=== PATIENT | female | born 1965 | race Two or more races ===

== ENCOUNTER 2016-03-09 08:44 | Emergency (ER) | payer MEDICAID ==
[~2016-03-09] VITALS: Ht 157.5 cm; Wt 89.4 kg
[2016-03-09 08:54] VITALS: BP 164/91
== END 2016-03-09 09:38 | disposition home or self-care (01) ==
LOC: ER 08:45
DX: J01.90 Acute sinusitis, unspecified (principal); H66.92 Otitis media, unspecified, left ear; E11.9 Type 2 diabetes mellitus without complications; I10 Essential (primary) hypertension

== ENCOUNTER 2016-03-13 13:29 | Emergency (ER) | payer MEDICAID ==
[~2016-03-13] VITALS: Ht 157.5 cm; Wt 81.6 kg
[2016-03-13 14:39] LABS: Basophils # (auto) 0 uL; Basophils % (auto) 0.5 % (0.0-2.0); Eosinophils # (auto) 0.3 uL; Eosinophils % (auto) 2.4 % (0.0-7.0); Hematocrit 42.1 % (36.0-46.0); Hemoglobin 13.9 g/dL (12.2-16.2); Lymphocytes # (auto) 3.8 uL; Lymphocytes % (auto) 34.6 % (10.0-50.0); Mean Corpuscular Hgb Conc. 33.1 g/dL (32.0-36.0); Mean Corpuscular Volume 84.7 fL (80.0-100.0); Mean Platelet Volume 9.4 fL (7.4-10.4); Monocytes # (auto) 0.6 uL; Monocytes % (auto) 5.8 % (0.0-12.0); Neutrophils # (auto) 6.2 uL; Neutrophils % (auto) 56.7 % (37.0-80.0); Platelet Count (auto) 305 10^3/uL (140-450); Red Cell Distribution Width 13.2 % (11.6-16.0)
[2016-03-13 14:46] VITALS: BP 166/76
[2016-03-13 14:48] LABS: BUN/Creatinine Ratio 17.1; Calcium 8.3 mg/dL (8.5-10.1); Magnesium 1.8 mg/dL (1.6-2.6); Potassium 3.9 mmol/L (3.5-5.1)
[2016-03-13 14:50] LABS: Bilirubin, Total 0.3 mg/dL (0.2-1.0); Total Protein 7.6 g/dL (6.4-8.2)
== END 2016-03-13 16:25 | disposition home or self-care (01) ==
LOC: ER 13:35
DX: G44.209 Tension-type headache, unspecified, not intractable (principal); E11.9 Type 2 diabetes mellitus without complications; I10 Essential (primary) hypertension
CPT/HCPCS: 36415; 70450; 80053; 83735; 84484; 85025; 85049; 93005

== ENCOUNTER 2018-10-08 12:28 | Emergency (ER) | payer MEDICAID ==
[~2018-10-08] VITALS: Ht 154.9 cm; Wt 79.4 kg
[2018-10-08 13:29] VITALS: BP 151/63
[2018-10-08] MEDS ORDERED: METHOCARBAMOL 500 MG TAB PO ONE (14:30)
[2018-10-08] MEDS ORDERED: KETOROLAC TROMETH 60MG/2ML VIAL IM ONE (14:30)
== END 2018-10-08 15:40 | disposition home or self-care (01) ==
LOC: ER 12:38
DX: M54.16 Radiculopathy, lumbar region (principal); E11.9 Type 2 diabetes mellitus without complications; I10 Essential (primary) hypertension; E66.9 Obesity, unspecified; Z68.33 Body mass index [BMI] 33.0-33.9, adult; Z98.51 Tubal ligation status
CPT/HCPCS: 72100; 96372; 99283; J1885

== ENCOUNTER 2022-06-26 16:23 | Emergency (ER) | payer MEDICAID ==
[~2022-06-26] VITALS: Ht 152.4 cm; Wt 70.0 kg
[2022-06-26] MEDS ORDERED: HYDROcodone-ACET 5/325MG TAB PO ONE (17:00)
[2022-06-26] MEDS ORDERED: ONDANSETRON ODT 4 MG TAB PO ONE (17:00)
[2022-06-26 17:02] LABS: Basophils # (auto) 0.1 10 ^3/uL (0-0.2); Eosinophils # (auto) 0.2 10 ^3/uL (0-0.8); Lymphocytes # (auto) 3.8 10 ^3/uL (0.4-5.4); Lymphocytes % (auto) 35.2 % (10.0-50.0); Monocytes # (auto) 0.6 10 ^3/uL (0-1.3); Nucleated Red Blood Cells % 0.1 %
[2022-06-26 17:06] LABS: Basophils % (auto) 0.8 % (0.0-2.0); Eosinophils % (auto) 2.2 % (0.0-7.0); Hematocrit 39.8 % (36.0-46.0); Hemoglobin 13.1 g/dL (12.2-16.2); Mean Corpuscular Hemoglobin 26.3 pg (28.0-32.0); Mean Corpuscular Volume 79.8 fL (80.0-100.0); Monocytes % (auto) 5.4 % (0.0-12.0); Neutrophils % (auto) 56.4 % (37.0-80.0); Red Blood Cells 4.99 10^6/uL (4.0-5.20); Red Cell Distribution Width 16.5 % (11.8-14.3); White Blood Cell 10.7 10^3/uL (4.4-10.8)
[2022-06-26 17:22] LABS: Albumin 3.9 g/dL (3.4-5.0); Calcium 9.2 mg/dL (8.5-10.1); Potassium 4.1 mmol/L (3.5-5.1)
[2022-06-26 17:25] LABS: Bilirubin, Total 0.2 mg/dL (0.2-1.0); Total Protein 7.3 g/dL (6.4-8.2)
[2022-06-26] MEDS ORDERED: ONDA-144 PO (20:45)
[2022-06-26] MEDS ORDERED: IBUP600T27 PO (20:45)
[2022-06-26 21:20] VITALS: BP 137/82
== END 2022-06-26 21:33 | disposition home or self-care (01) ==
LOC: ER 16:23
DX: M94.0 Chondrocostal junction syndrome [Tietze] (principal); E11.9 Type 2 diabetes mellitus without complications; I10 Essential (primary) hypertension; E66.9 Obesity, unspecified; Z68.30 Body mass index [BMI] 30.0-30.9, adult
CPT/HCPCS: 36415; 80053; 84484; 85025; 85379; 93005; 99284; Q0162

== ENCOUNTER 2022-10-02 10:28 | Inpatient (IN) | payer MEDICAID ==
[~2022-10-02] VITALS: Ht 157.5 cm; Wt 77.5 kg
[~2022-10-02 10:28] MED LIST: IBUP-1454 PO; ONDA-144 PO
[2022-10-02] MEDS ORDERED: NITROGLYCERIN 0.4 MG SL TAB SL ONE ×2 (10:30→13:00)
[2022-10-02] MEDS ORDERED: ASPirin 325 MG TAB PO ONE (10:30)
[2022-10-02 11:03] LABS: Albumin 3.7 g/dL (3.4-5.0); Basophils # (auto) 0.1 10 ^3/uL (0-0.2); Basophils % (auto) 0.6 % (0.0-2.0); Calcium 8.9 mg/dL (8.5-10.1); Lymphocytes # (auto) 3.2 10 ^3/uL (0.4-5.4); Monocytes # (auto) 0.5 10 ^3/uL (0-1.3); Monocytes % (auto) 5.5 % (0.0-12.0); Nucleated Red Blood Cells % 0.1 %
[2022-10-02 11:05] LABS: BUN/Creatinine Ratio 17.9 (10.0-20.0); Bilirubin, Total 0.2 mg/dL (0.2-1.0); Total Protein 7.4 g/dL (6.4-8.2)
[2022-10-02 11:06] LABS: Eosinophils # (auto) 0.2 10 ^3/uL (0-0.8); Eosinophils % (auto) 1.6 % (0.0-7.0); Hematocrit 37.9 % (36.0-46.0); Hemoglobin 12.3 g/dL (12.2-16.2); Lymphocytes % (auto) 33.8 % (10.0-50.0); Mean Corpuscular Hgb Conc. 32.4 g/dL (32.0-36.0); Mean Corpuscular Volume 80.2 fL (80.0-100.0); Neutrophils # (auto) 5.5 10 ^3/uL (1.6-8.6); Neutrophils % (auto) 58.5 % (37.0-80.0); Red Blood Cells 4.73 10^6/uL (4.0-5.20); Red Cell Distribution Width 14.2 % (11.8-14.3); White Blood Cell 9.4 10^3/uL (4.4-10.8)
[2022-10-02 12:22] LABS: Urine Bacteria NONE SEEN /hpf (None Seen); Urine Blood Negative /uL (Negative); Urine Clarity Clear (Clear); Urine Color Yellow (Yellow); Urine Protein, UAD Negative (Negative); Urine Specific Gravity 1.042 (1.001-1.035); Urine Urobilinogen Normal (Negative); Urine WBC 1 /hpf (0 - 5); Urine pH 5.5 (5.0-8.0)
[2022-10-02] MEDS ORDERED: NITROGLYCERIN 0.4 MG SL TAB SL PRN (14:00)
[2022-10-02] MEDS ORDERED: MORPHINE SULFATE INJ 2 MG/ml SYRG IV PRN (14:00)
[2022-10-02 14:35] LABS: Cholesterol 145 mg/dL (< 200)
[2022-10-02 14:38] LABS: HDL Cholesterol 37 mg/dL (40-59); LDL Cholesterol 92 mg/dL (< 100); Triglycerides 218 mg/dL (< 150)
[2022-10-02 15:52] VITALS: PULSE 62; RESP 20; O2SAT 97
[2022-10-02] MEDS ORDERED: METF-929 PO (16:16)
[2022-10-02] MEDS ORDERED: OMEP20TA PO (16:20)
[2022-10-02] MEDS ORDERED: ERTU5TAB PO (16:20)
[2022-10-02] MEDS ORDERED: SIMV20TA20 PO (16:20)
[2022-10-02] MEDS ORDERED: AML5T PO (16:20)
[2022-10-02] MEDS ORDERED: CHOL20007 PO (16:20)
[2022-10-02] MEDS ORDERED: LOSA100T58 PO (16:20)
[2022-10-02] MEDS ORDERED: DEXTROSE (50%) 50ML SYRG IV ONE (16:45)
[2022-10-02] MEDS ORDERED: InsuLIN REG 1unit/0.01ml Soln (100units/ml) SC ONE (17:00)
[2022-10-02] MEDS ORDERED: ACCU-CHEK COMFORT CURVE STRIP VI ONE (17:00)
[2022-10-02] MEDS: ACETAMINOPHEN 325 MG TAB PO PRN (18:48)
[2022-10-02 20:00] VITALS: PULSE 63; RESP 20; O2SAT 96
[2022-10-02] MEDS ORDERED: DEXTROSE (50%) 50ML SYRG IV PRN (20:00)
[2022-10-02] MEDS: InsuLIN REG 1unit/0.01ml Soln (100units/ml) SC SCH (21:45)
[2022-10-02] MEDS: ACCU-CHEK COMFORT CURVE STRIP VI SCH (21:45)
[2022-10-03] MEDS: ACETAMINOPHEN 325 MG TAB PO PRN (00:42)
[2022-10-03 05:18] LABS: Basophils # (auto) 0 10 ^3/uL (0-0.2); Basophils % (auto) 0.5 % (0.0-2.0); Eosinophils # (auto) 0.2 10 ^3/uL (0-0.8); Hemoglobin 11.7 g/dL (12.2-16.2); Monocytes # (auto) 0.6 10 ^3/uL (0-1.3)
[2022-10-03 05:21] LABS: Eosinophils % (auto) 2.2 % (0.0-7.0); Hematocrit 35.1 % (36.0-46.0); Lymphocytes # (auto) 2.5 10 ^3/uL (0.4-5.4); Lymphocytes % (auto) 30.4 % (10.0-50.0); Mean Corpuscular Hemoglobin 26.6 pg (28.0-32.0); Mean Corpuscular Hgb Conc. 33.5 g/dL (32.0-36.0); Mean Corpuscular Volume 79.4 fL (80.0-100.0); Monocytes % (auto) 6.8 % (0.0-12.0); Neutrophils % (auto) 60.1 % (37.0-80.0); Nucleated Red Blood Cells % 0.1 %; Red Blood Cells 4.42 10^6/uL (4.0-5.20); Red Cell Distribution Width 14.2 % (11.8-14.3); White Blood Cell 8.3 10^3/uL (4.4-10.8)
[2022-10-03 05:32] LABS: Albumin 3.2 g/dL (3.4-5.0); Calcium 8.3 mg/dL (8.5-10.1)
[2022-10-03 05:35] LABS: BUN/Creatinine Ratio 20.6 (10.0-20.0); Bilirubin, Total 0.3 mg/dL (0.2-1.0); Total Protein 6.6 g/dL (6.4-8.2)
[2022-10-03] MEDS: ACCU-CHEK COMFORT CURVE STRIP VI SCH ×4 (06:37→21:21)
[2022-10-03] MEDS: InsuLIN REG 1unit/0.01ml Soln (100units/ml) SC SCH ×4 (06:37→21:25)
[2022-10-03 07:41] VITALS: PULSE 61; RESP 12; O2SAT 96
[2022-10-03] MEDS ORDERED: PATIENTS OWN MEDICATION (Omeprazole (Gnp Omeprazole) 40 MG) PO SCH (10:00)
[2022-10-03] MEDS: ASPirin 81 mg TAB PO SCH (10:21)
[2022-10-03] MEDS: amLODIPine BESYLATE 5 MG TAB PO SCH (10:22)
[2022-10-03] MEDS: PANTOPRAZOLE 40 MG TAB PO SCH (10:22)
[2022-10-03] MEDS: LOSARTAN POTASSIUM 50 MG TAB PO SCH (10:22)
[2022-10-03] MEDS: ENOXAPARIN SOD 40 MG/0.4 ML SYRINGE SC SCH (10:22)
[2022-10-03 17:47] VITALS: BP 142/69; PULSE 71; RESP 18; TEMP 98.9; O2SAT 96
[2022-10-03 20:00] VITALS: PULSE 62; PULSE 65; RESP 18; O2SAT 95
[2022-10-03] MEDS: ATORVASTATIN 20 MG TAB PO SCH (21:21)
[2022-10-03 22:00] VITALS: BP 130/56; PULSE 60; RESP 18; TEMP 97.4; O2SAT 96
[2022-10-03] MEDS ORDERED: PANTOPRAZOLE 40 MG TAB PO ONE (22:15)
[2022-10-04] VITALS (10 sets, daily range): BP systolic 113–148; BP diastolic 56–86; PULSE 56–79; RESP 15–18; TEMP 97.2–98; O2SAT 94–99
[2022-10-04] MEDS: ACCU-CHEK COMFORT CURVE STRIP VI SCH ×4 (06:17→22:00)
[2022-10-04] MEDS: InsuLIN REG 1unit/0.01ml Soln (100units/ml) SC SCH ×4 (06:19→22:00)
[2022-10-04 06:57] LABS: Basophils # (auto) 0 10 ^3/uL (0-0.2); Basophils % (auto) 0.5 % (0.0-2.0); Eosinophils # (auto) 0.2 10 ^3/uL (0-0.8); Lymphocytes # (auto) 2.3 10 ^3/uL (0.4-5.4); Monocytes # (auto) 0.6 10 ^3/uL (0-1.3); Nucleated Red Blood Cells % 0.1 %
[2022-10-04 06:59] LABS: Eosinophils % (auto) 2.2 % (0.0-7.0); Hematocrit 36.7 % (36.0-46.0); Lymphocytes % (auto) 26.4 % (10.0-50.0); Mean Corpuscular Hemoglobin 26.4 pg (28.0-32.0); Mean Corpuscular Hgb Conc. 32.6 g/dL (32.0-36.0); Mean Corpuscular Volume 80.9 fL (80.0-100.0); Monocytes % (auto) 6.3 % (0.0-12.0); Neutrophils # (auto) 5.7 10 ^3/uL (1.6-8.6); Neutrophils % (auto) 64.6 % (37.0-80.0); Red Blood Cells 4.54 10^6/uL (4.0-5.20); Red Cell Distribution Width 14.1 % (11.8-14.3); White Blood Cell 8.8 10^3/uL (4.4-10.8)
[2022-10-04 07:37] LABS: BUN/Creatinine Ratio 16.7 (10.0-20.0); Calcium 8.6 mg/dL (8.5-10.1); Potassium 4.1 mmol/L (3.5-5.1)
[2022-10-04] MEDS ORDERED: ADENOSINE 62 MG in GIVE UN-DILUTED 0 ML IV ONE (07:45)
[2022-10-04] MEDS: ASPirin 81 mg TAB PO SCH (10:00)
[2022-10-04] MEDS: ENOXAPARIN SOD 40 MG/0.4 ML SYRINGE SC SCH (10:00)
[2022-10-04 10:57] LABS: INR 1.01 (0.9-1.15); Partial Thromboplastin Time 24.9 SEC (24.5-34.5); Prothrombin Time 10.6 sec (9.3-11.8)
[2022-10-04] MEDS: PANTOPRAZOLE 40 MG TAB PO SCH (11:04)
[2022-10-04] MEDS: LOSARTAN POTASSIUM 50 MG TAB PO SCH (11:05)
[2022-10-04] MEDS: amLODIPine BESYLATE 5 MG TAB PO SCH (11:05)
[2022-10-04] MEDS ORDERED: HEPARIN SODIUM (PORCINE) 5000 UNITS/ML 1ML VIAL ONE (14:45)
[2022-10-04] MEDS ORDERED: VERAPAMIL 2.5MG/ML INJ 2ML VIAL IV ONE (14:45)
[2022-10-04] MEDS ORDERED: fentaNYL CITRATE 100 MCG/2 ML VL ONE (14:46)
[2022-10-04] MEDS ORDERED: LIDOCAINE 2%HCL (LOCAL ANESTH.) INJ 20ML MDV ONE ×2 (14:46→14:56)
[2022-10-04] MEDS ORDERED: MIDAZOLAM HCL 2MG/2ML 2ml VIAL (1mg/ml) ONE (14:46)
[2022-10-04] MEDS ORDERED: IOHEXOL 350 MG/ML 100ML IJ ONE (14:46)
[2022-10-04] MEDS: ATORVASTATIN 20 MG TAB PO SCH (21:34)
[2022-10-05 05:00] VITALS: BP 104/59; PULSE 61; RESP 18; TEMP 98; O2SAT 97
[2022-10-05] MEDS: ACCU-CHEK COMFORT CURVE STRIP VI SCH ×2 (05:53→11:44)
[2022-10-05] MEDS: InsuLIN REG 1unit/0.01ml Soln (100units/ml) SC SCH ×2 (05:53→11:45)
[2022-10-05 06:39] LABS: Basophils # (auto) 0 10 ^3/uL (0-0.2); Eosinophils # (auto) 0.2 10 ^3/uL (0-0.8); Eosinophils % (auto) 2.1 % (0.0-7.0); Hemoglobin 11.8 g/dL (12.2-16.2); Lymphocytes # (auto) 2.4 10 ^3/uL (0.4-5.4); Monocytes # (auto) 0.6 10 ^3/uL (0-1.3); Nucleated Red Blood Cells % 0.1 %
[2022-10-05 06:42] LABS: Basophils % (auto) 0.5 % (0.0-2.0); Hematocrit 36.6 % (36.0-46.0); Lymphocytes % (auto) 30.6 % (10.0-50.0); Mean Corpuscular Hemoglobin 26.3 pg (28.0-32.0); Mean Corpuscular Hgb Conc. 32.2 g/dL (32.0-36.0); Mean Corpuscular Volume 81.6 fL (80.0-100.0); Monocytes % (auto) 7.2 % (0.0-12.0); Neutrophils # (auto) 4.8 10 ^3/uL (1.6-8.6); Neutrophils % (auto) 59.6 % (37.0-80.0); Red Blood Cells 4.49 10^6/uL (4.0-5.20); Red Cell Distribution Width 14.4 % (11.8-14.3)
[2022-10-05 06:55] LABS: Potassium 3.8 mmol/L (3.5-5.1)
[2022-10-05 07:03] LABS: Calcium 8.9 mg/dL (8.5-10.1)
[2022-10-05 08:00] VITALS: PULSE 61
[2022-10-05 09:00] VITALS: BP 135/61; PULSE 75; RESP 17; TEMP 98.2; O2SAT 96
[2022-10-05] MEDS: PANTOPRAZOLE 40 MG TAB PO SCH (09:21)
[2022-10-05] MEDS: ASPirin 81 mg TAB PO SCH (09:22)
[2022-10-05] MEDS: amLODIPine BESYLATE 5 MG TAB PO SCH (09:22)
[2022-10-05] MEDS: LOSARTAN POTASSIUM 50 MG TAB PO SCH (09:22)
[2022-10-05 14:09] VITALS: BP 150/70; PULSE 73; RESP 16; TEMP 98.2; O2SAT 95
== END 2022-10-05 15:45 | disposition home or self-care (01) | DRG 191 ==
LOC: ER 10:28 → TELE 14:00 → TELE-CENTR 10-03 17:25
PROVIDERS: ADMIT Internal Medicine; ATTEND Student in an Organized Health Care Education/Training Program
PROC: 4A023N7 Measurement of Cardiac Sampling and Pressure, Left Heart, Percutaneous Approach (ICD-10-PCS; principal; 2022-10-05)
PROC: B2111ZZ Fluoroscopy of Multiple Coronary Arteries using Low Osmolar Contrast (ICD-10-PCS; 2022-10-05)
PROC: B2151ZZ Fluoroscopy of Left Heart using Low Osmolar Contrast (ICD-10-PCS; 2022-10-05)
DX: I25.10 Atherosclerotic heart disease of native coronary artery without angina pectoris (principal); I24.9 Acute ischemic heart disease, unspecified; E11.9 Type 2 diabetes mellitus without complications; E66.01 Morbid (severe) obesity due to excess calories; I10 Essential (primary) hypertension; E78.5 Hyperlipidemia, unspecified; K21.9 Gastro-esophageal reflux disease without esophagitis; G43.909 Migraine, unspecified, not intractable, without status migrainosus; Z79.4 Long term (current) use of insulin; Z82.49 Family history of ischemic heart disease and other diseases of the circulatory system; Z83.3 Family history of diabetes mellitus; Z98.51 Tubal ligation status; Z68.31 Body mass index [BMI] 31.0-31.9, adult
CPT/HCPCS: 36415; 71045; 76937; 78452; 80048; 80053; 80061; 81001; 82962; 83036; 83880; 84443; 84484; 85025; 85379; 85610; 85730; 93005; 93017; 93306; 99152; G0378; J0153; J1815; J2250

== ENCOUNTER 2023-08-16 11:40 | Emergency (ER) | payer MEDICAID ==
[~2023-08-16] VITALS: Ht 157.5 cm; Wt 74.8 kg
[~2023-08-16 11:40] MED LIST changes: +AML5T PO; +CHOL20007 PO; +ERTU5TAB PO; -IBUP-1454 PO; +LOSA-535 PO; +METF-929 PO; +OMEP20TA PO; +SIMV20TA20 PO
[2023-08-16 13:47] LABS: Urine Bacteria None Seen /hpf (None Seen)
[2023-08-16 13:51] LABS: Basophils # (auto) 0 10 ^3/uL (0-0.2); Eosinophils # (auto) 0.2 10 ^3/uL (0-0.8); Eosinophils % (auto) 2.3 % (0.0-7.0); Monocytes # (auto) 0.5 10 ^3/uL (0-1.3); Neutrophils % (auto) 64.4 % (37.0-80.0)
[2023-08-16 13:54] LABS: Basophils % (auto) 0.6 % (0.0-2.0); Lymphocytes # (auto) 2.1 10 ^3/uL (0.4-5.4); Lymphocytes % (auto) 26.8 % (10.0-50.0); Mean Corpuscular Hemoglobin 23.8 pg (28.0-32.0); Mean Corpuscular Hgb Conc. 32.3 g/dL (32.0-36.0); Mean Corpuscular Volume 73.6 fL (80.0-100.0); Monocytes % (auto) 5.9 % (0.0-12.0); Neutrophils # (auto) 5.1 10 ^3/uL (1.6-8.6); Nucleated Red Blood Cells % 0.1 %; Red Blood Cells 4.62 10^6/uL (4.0-5.20); Red Cell Distribution Width 18.8 % (11.8-14.3)
[2023-08-16 14:02] LABS: Urine Blood Negative /uL (Negative); Urine Clarity Clear (Clear); Urine Color Light-Yellow (Yellow); Urine Protein, UAD Negative (Negative); Urine Specific Gravity 1.017 (1.001-1.035); Urine Urobilinogen Normal (Negative); Urine WBC 2 /hpf (0 - 5); Urine pH 5.5 (5.0-9.0)
[2023-08-16 14:09] LABS: Alanine Aminotransferase 42 U/L (7-40); Albumin 4.4 g/dL (3.2-4.8); Alkaline Phosphatase 77 U/L (46-116); Anion Gap 7 (5-15); Aspartate Aminotransferase 22 U/L (13-40); BUN/Creatinine Ratio 22.7 (10.0-20.0); Blood Urea Nitrogen 17 mg/dL (9-23); Calcium 10.5 mg/dL (8.7-10.4); Carbon Dioxide 28 mmol/L (20-30); Chloride 107 mmol/L (98-107); Glucose 216 mg/dL (74-106); Lipase 47 U/L (12-53); Potassium 4.6 mmol/L (3.5-5.1); Sodium 142 mmol/L (136-145)
[2023-08-16 14:10] LABS: Bilirubin, Total 0.2 mg/dL (0.2-1.0)
[2023-08-16 16:19] VITALS: BP 146/64; PULSE 62; RESP 20; TEMP 97.6; O2SAT 98
[2023-08-16] MEDS: HYDROcodone-ACET 5/325MG TAB PO ONE (16:30)
== END 2023-08-16 16:31 | disposition home or self-care (01) ==
LOC: ER 11:44
DX: D25.9 Leiomyoma of uterus, unspecified (principal); R91.1 Solitary pulmonary nodule; R10.84 Generalized abdominal pain; I10 Essential (primary) hypertension; E11.9 Type 2 diabetes mellitus without complications; F41.9 Anxiety disorder, unspecified; E78.5 Hyperlipidemia, unspecified; Z98.890 Other specified postprocedural states; Z79.899 Other long term (current) drug therapy
CPT/HCPCS: 36415; 74176; 80053; 81001; 83605; 83690; 84484; 85025

== ENCOUNTER 2023-10-11 18:29 | Emergency (ER) | payer MEDICAID ==
[~2023-10-11] VITALS: Ht 157.5 cm; Wt 75.0 kg
[2023-10-11 20:22] LABS: Urine Amorphous Crystal FEW /hpf (None Seen); Urine Bacteria FEW /hpf (None Seen); Urine Blood Negative /uL (Negative); Urine Clarity Ex.Turbid (Clear); Urine Color Light-Brown (Yellow); Urine Hyaline Cast FEW /lpf (0 - 2); Urine Mucus FEW (None Seen); Urine Protein, UAD 1+ (Negative); Urine Specific Gravity 1.011 (1.001-1.035); Urine Urobilinogen Normal (Negative); Urine WBC 4 /hpf (0 - 5); Urine pH 5.5 (5.0-9.0)
[2023-10-11 21:45] LABS: Basophils # (auto) 0 10 ^3/uL (0-0.2); Basophils % (auto) 0.3 % (0.0-2.0); Eosinophils # (auto) 0.1 10 ^3/uL (0-0.8); Eosinophils % (auto) 0.8 % (0.0-7.0); Hematocrit 36.1 % (36.0-46.0); Hemoglobin 11.2 g/dL (12.2-16.2); Lymphocytes # (auto) 2.2 10 ^3/uL (0.4-5.4); Lymphocytes % (auto) 15.2 % (10.0-50.0); Mean Corpuscular Hemoglobin 23.7 pg (28.0-32.0); Mean Corpuscular Hgb Conc. 31.1 g/dL (32.0-36.0); Mean Corpuscular Volume 76.3 fL (80.0-100.0); Monocytes # (auto) 1.2 10 ^3/uL (0-1.3); Monocytes % (auto) 8.5 % (0.0-12.0); Neutrophils # (auto) 10.7 10 ^3/uL (1.6-8.6); Neutrophils % (auto) 75.2 % (37.0-80.0); Red Blood Cells 4.73 10^6/uL (4.0-5.20); Red Cell Distribution Width 18.7 % (11.8-14.3); White Blood Cell 14.2 10^3/uL (4.4-10.8)
[2023-10-11 21:47] VITALS: BP 156/61; PULSE 79; RESP 18; TEMP 99.5; O2SAT 96
[2023-10-11 21:51] LABS: Alanine Aminotransferase 35 U/L (7-40); Albumin 4.5 g/dL (3.2-4.8); Alkaline Phosphatase 81 U/L (46-116); Anion Gap 8 (5-15); Aspartate Aminotransferase 21 U/L (13-40); BUN/Creatinine Ratio 12.6 (10.0-20.0); Bilirubin, Total 0.2 mg/dL (0.2-1.0); Blood Urea Nitrogen 23 mg/dL (9-23); Calcium 10.4 mg/dL (8.7-10.4); Carbon Dioxide 28 mmol/L (20-30); Chloride 106 mmol/L (98-107); Glucose 63 mg/dL (74-106); Potassium 4.6 mmol/L (3.5-5.1); Sodium 142 mmol/L (136-145); Total Protein 7.3 g/dL (5.7-8.2)
[2023-10-11 22:19] LABS: Lipase 63 U/L (12-53)
[2023-10-11] MEDS ORDERED: MAGN100T6 OR (22:43)
== END 2023-10-11 22:50 | disposition home or self-care (01) ==
LOC: ER 18:29
DX: K59.00 Constipation, unspecified (principal); E11.9 Type 2 diabetes mellitus without complications; I10 Essential (primary) hypertension; Z98.51 Tubal ligation status
CPT/HCPCS: 36415; 74176; 80053; 81001; 83690; 85025